=== PATIENT | male | born 1940 | race Caucasian/White ===

== ENCOUNTER → 2018-01-25 14:55 | Outpatient (CLI) | payer MEDICARE, SELFPAY ==
--- NOTE | 2018-01-25 14:58 | DI.RAD.S_ITS ---
PROCEDURE: XR HIP W PEL IF DONE LT 2V INDICATIONS: Pain in left hip TECHNIQUE: AP pelvis with lateral view(s) of the left hip(s). COMPARISON: None. FINDINGS: Bones: There is severe left hip joint osteoarthritis with complete loss of joint space, extensive subchondral sclerosis and cyst formation. No radiographic evidence of avascular necrosis. Moderate right hip joint osteoarthritis is also seen. No fractures or dislocations. Pelvic ring appears intact. No suspicious bony lesions. Soft tissues: The visualized bowel gas pattern is normal. No suspicious soft tissue calcifications. IMPRESSION: Severe left hip joint osteoarthritis. No fracture or dislocation. No evidence of avascular necrosis.. Dictated by: Billy Bowers M.D. on 01/25/2018 at 16:06 Approved by: Billy Bowers M.D. on 01/25/2018 at 16:07
== END ==
PROVIDERS: PCP Family Medicine; Visit Provider Family Medicine
DX: M25.552 Pain in left hip (principal); M16.12 Unilateral primary osteoarthritis, left hip
CPT/HCPCS: 73502

== ENCOUNTER → 2018-02-02 16:49 | Outpatient (CLI) | payer MEDICARE, SELFPAY ==
--- NOTE | 2018-02-02 16:51 | DI.MRI.S_ITS ---
PROCEDURE: MR ANKLE RT WO CON INDICATIONS: CHRONIC RIGHT ANKLE PAIN TECHNIQUE: Noncontrast sagittal T1 spin echo and T2 fast spin echo with fat saturation, axial proton density fast spin echo and T2 fast spin echo with fat saturation, coronal T1 spin echo and T2 fast spin echo with fat saturation through the ankle/hindfoot. COMPARISON: None. FINDINGS: Image quality: Excellent. Bones and joints: No bone marrow contusions or fractures. No hindfoot coalitions. No osteochondral injuries of the talar dome. There is a minimal tibiotalar joint effusion. There is generalized mild subcutaneous edema. Medial structures: The posterior tibialis, flexor digitorum longus, and flexor hallucis longus tendons are intact. The posterior tibial neurovascular bundle appears normal within the tarsal tunnel, without extrinsic mass effect. The deltoid and spring ligaments appear intact. Lateral structures: The anterior talofibular, calcaneofibular, and posterior talofibular ligaments appear intact. There is thickening of the anterior talofibular ligament suggestive of a prior sprain. More superiorly, the anterior and posterior tibiofibular ligaments appear intact, as is the intermalleolar ligament. The tibiofibular syndesmosis is normal in width at 2 mm or less. The peroneus longus and brevis tendons demonstrate mild longitudinal split tears inferior to the lateral malleolus. Adjacent bony peroneal tubercle and retrotrochlear prominence are normal in size. The sinus tarsi demonstrates preserved fatty signal. The calcaneonavicular and calcaneocuboid components of the bifurcate ligament appear intact. The dorsal calcaneocuboid ligament appears intact. Anterior structures: The tibialis anterior, extensor hallucis longus, and extensor digitorum longus tendons appear intact. The dorsal talonavicular ligament appears intact. Posterior and plantar structures: Achilles tendon is intact. Medial and lateral bands of the plantar fascia are of normal thickness. No abductor digiti quinti muscle atrophy to suggest Bean neuropathy. IMPRESSION: 1. Small longitudinal split tears of the peroneal tendons. 2. Sequelae of prior sprain of the anterior talofibular ligament. Dictated by: Dhruv Banegas M.D. on 02/02/2018 at 16:53 Approved by: Dhruv Banegas M.D. on 02/02/2018 at 17:02
== END ==
PROVIDERS: PCP Family Medicine; Visit Provider Podiatrist
DX: S86.311A Strain of muscle(s) and tendon(s) of peroneal muscle group at lower leg level, right leg, initial encounter (principal); M25.371 Other instability, right ankle; S93.491S Sprain of other ligament of right ankle, sequela
CPT/HCPCS: 73721

== ENCOUNTER → 2018-04-18 14:31 | Outpatient (CLI) | payer MEDICARE, SELFPAY ==
[2018-04-18 14:47] LABS: Bacteria Urine None Seen; WBC Urine None Seen (0-5/HPF)
[2018-04-18 15:26] LABS: Appearance Urine UA CLEAR; Bilirubin Urine UA NEGATIVE (NEGATIVE); Color Urine UA YELLOW; Glucose Urine UA NEGATIVE (Normal); Ketones Urine UA NEGATIVE (NEGATIVE); Leukocyte Esterase Urine UA NEGATIVE (NEGATIVE); Nitrite Urine UA NEGATIVE (Negative); Occult Blood Urine UA 1+ (Negative); Protein Urine UA NEGATIVE (Negative); Specific Gravity Urine UA 1.015 (1.000-1.035); Urobilinogen Urine UA 0.2 E.U./dL (0.2); pH Urine UA 5.5 (4.5-8.0)
[2018-04-18 15:31] LABS: Add Manual Diff / Slide Review NO; Basophils Percent Auto 0.9 % (0-2); Eosinophils Percent Auto 4.3 % (2-4); Hematocrit 42.3 % (41-53); Hemoglobin 14.2 g/dL (13.5-17.5); Lymphocytes Percent Auto 20.6 % (25-40); Mean Corpuscular HGB Conc 33.7 % (30-36); Mean Corpuscular Hemoglobin 30.5 PG (26-34); Mean Corpuscular Volume 90.5 fL (80-100); Monocytes Percent Auto 9.9 % (3-14); Neutrophils Absolute Auto 4700 /uL (3000-5900); Neutrophils Percent Auto 64.3 % (50-75); Platelet Count 278 X10^3/uL (150-400); Red Blood Cell Count 4.67 X10^6/uL (4.5-5.9); White Blood Cell Count 7.3 X10^3/uL (4.5-11.0)
[2018-04-18 15:42] LABS: Culture Indicated Urine Cult Not Indicated; RBC Urine 0-1/HPF (0-5/HPF)
[2018-04-18 15:46] LABS: Hemoglobin A1C% w Est Avg Glu 5.8 % (4.0-6.0)
[2018-04-18 16:55] LABS: Blood Urea Nitrogen 24 mg/dL (9-20); Calcium 9.4 mg/dL (8.4-10.2); Carbon Dioxide 29 mmol/L (22-32); Chloride 102 mmol/L (98-107); Estimated Glomerular Filt Rate > 60.0 mL/min (>60); Glucose 128 mg/dL (80-110); HEMOLYSIS < 15 (0-50); Potassium 3.9 mmol/L (3.4-5.1); Sodium 143 mmol/L (137-145)
== END ==
PROVIDERS: PCP Family Medicine; Visit Provider Orthopaedic Surgery
DX: N39.0 Urinary tract infection, site not specified (principal); R73.9 Hyperglycemia, unspecified; Z01.818 Encounter for other preprocedural examination
CPT/HCPCS: 36415; 80048; 81001; 83036; 85025; 87086; 93005; 93010

== ENCOUNTER → 2018-05-31 13:33 | Outpatient (CLI) | payer MEDICARE, SELFPAY ==
--- NOTE | 2018-05-31 13:36 | DI.ECHO.S_ITS ---
[facility] +---------+ [facility] +---------+ : : [address] : [place] [address] : : : : [id number] : : : : Phone: [phone]+ Echocardiogram Report + + :Name: STONE BERRY Study Date: 05/31/2018 Height: 72 in : :[facility] Weight: 175 lb : : Gender: Male BSA: 2.0 m2 : :: 1940 Age: 78 yrs BP: 165/80 mmHg: :Reason For Study: Pre-surgical evaluation : : Performed By: Aranza Plaza : :Referring: EFREN MACHADO : + + Interpretation Summary 1) Normal left ventricular thickness, size, and systoilc function (EF 55-60%). 2) There is a mild dyssynchronous contraction pattern, consistent with a conduction abnormality. 3) Grossly normal right ventricular size and function. 4) No significant valvular abnormalities. 5) Hypertension present during the study (BP 165/80mmHg). 6) Compared to the Echo done 05/01/2015, no significant change when compared visually. Procedure: A two-dimensional transthoracic echocardiogram with color flow and Doppler was performed. The study quality was technically adequate. Comparison is made with the echocardiogram of 05-01-15. The patient was in irregular during the exam. Left Ventricle: The left ventricle is normal in size. There is normal left ventricular wall thickness. The ejection fraction is estimated to be 55-60%. Left ventricular systolic function is normal. There is a mild dyssynchronous contraction pattern, consistent with a conduction abnormality. Diastolic parameters suggest probable normal left ventricular diastolic function and normal filling pressures. Right Ventricle: The right ventricle grossly appears normal in size with probable normal systolic function. Atria: The left atrial size is normal. The right atrium is mildly dilated. The interatrial septum is intact with no evidence for an atrial septal defect. Mitral Valve: The mitral valve is normal in structure and function. There is trace mitral regurgitation. Aortic Valve: The aortic valve is trileaflet. The aortic valve opens well. There is trace aortic regurgitation. Tricuspid Valve: The tricuspid valve is normal in structure and function. There is trace tricuspid regurgitation. The right ventricular systolic pressure is estimated to be at least 30 mmHg based on an estimated right atrial pressure of 3 mm Hg. Pulmonic Valve: The pulmonic valve is normal in structure and function. There is trace pulmonic regurgitation. Great Vessels: The aortic root is mildly dilated. The ascending aorta is at the upper limits of normal in size. The aortic arch is at the upper limits of normal in size. The IVC is of normal diameter and collapses greater than 50% with a sniff. This suggests a low right atrial pressure of 3 mm Hg. Pericardium/ Pleura There is no pericardial effusion. There is no pleural effusion. MMode/2D Measurements & Calculations LVIDd: 4.5 cm Ao root diam: 4.1 cm LVIDs: 2.9 cm Aortic Jxn: 3.3 cm FS: 34.4 % asc Aorta Diam: 3.6 cm IVSd: 1.1 cm Ao Arch Diam (Prox Trans): 3.4 cm LVPWd: 0.86 cm LV sahni. diameter/BSA (cm/m^2): 2.2 LV sys. diameter/BSA (cm/m^2): 1.5 LA dimension: 3.6 cm RA long axis: 5.0 cm LA A2 area: 21.4 cm2 RA area: 21.1 cm2 LA A4 area: 15.8 cm2 RA vol: 75.9 ml LA length (vol): 5.9 cm RA : 37.7 ml/m2 LA vol: 48.9 ml IVC diam: 1.2 cm LA vol index: 24.3 ml/m2 RVDd major: 6.1 cm RVD1 (basal): 3.7 cm RVD2 (mid): 3.3 cm Doppler Measurements & Calculations Ao V2 max: 122.2 cm/sec MV E max aristides: 41.5 cm/sec Ao V2 mean: 84.1 cm/sec MV A max aristides: 60.0 cm/sec Ao max P.0 mmHg MV E/A: 0.69 Ao mean P.2 mmHg Med Peak E' Aristides: 7.7 cm/sec Ao V2 VTI: 28.5 cm E/E' med: 5.4 Lat Peak E' Aristides: 10.3 cm/sec E/E' lat: 4.0 E/e' average: 4.7 MV dec time: 0.14 sec MV P1/2t: 43.7 msec TR max aristides: 257.4 cm/sec MV P1/2t max aristides: 42.1 cm/sec TR max P.5 mmHg MVA(P1/2t): 5.0 cm2 PA V2 max: 93.5 cm/sec PA V2 mean: 56.9 cm/sec PA mean P.6 mmHg PA Accel Time: 0.12 sec Reading Physician:01:15 PM
== END ==
PROVIDERS: PCP Family Medicine; Visit Provider Family Medicine
DX: Z01.810 Encounter for preprocedural cardiovascular examination (principal); I45.10 Unspecified right bundle-branch block; I10 Essential (primary) hypertension
CPT/HCPCS: 93306

== ENCOUNTER 2018-06-05 05:50 | Inpatient (IN) | payer MEDICARE, SELFPAY ==
[2018-05-22 09:42] VITALS: BMI 23.7
[2018-06-05] VITALS (20 sets, daily range): BP systolic 108–160; BP diastolic 63–97; PULSE 68–96; RESP 9–76; TEMP 36.2–37.5; O2SAT 93–99; BMI 23.7
--- NOTE | 2018-06-05 | DI.RAD.S_ITS ---
PROCEDURE: XR PELVIS 1-2V INDICATIONS: LEFT ANTERIOR HIP TECHNIQUE: Intra-operative view of the pelvis and hip acquired. COMPARISON: [facility], [place], XR PELVIS WITH LATERAL HIP LEFT, 04/10/2018, 10:52. FINDINGS: 2 intraoperative fluoroscopic views demonstrate a new left total hip prosthesis. This appears congruent in alignment on the images obtained. IMPRESSION: 1. Intraoperative images of the left hip obtained for surgical guidance demonstrates a new left hip prosthesis. Dictated by: Dhruv Banegas M.D. on 06/05/2018 at 11:23 Approved by: Dhruv Banegas M.D. on 06/05/2018 at 11:24
--- NOTE | 2018-06-05 06:00 | DI.RAD.S_ITS ---
PROCEDURE: XR HIP W PEL IF DONE LT 2V INDICATIONS: prosthesis placement TECHNIQUE: AP pelvis and lateral view of the left hip acquired. COMPARISON: [facility], NA, XR HIP W PEL IF DONE LT 2V, 01/25/2018, 15:01. FINDINGS: Bones: Patient is status post left hip arthroplasty, with hardware components in expected positions. The hip joint appears congruent. The visualized bony structures appear intact. Soft tissues: Overlying postoperative changes are noted. No suspicious soft tissue densities. IMPRESSION: Normal alignment after left total hip arthroplasty. Dictated by: Ammon Salmon M.D. on 06/05/2018 at 13:37 Approved by: Ammon Salmon M.D. on 06/05/2018 at 13:38
[2018-06-05] MEDS: LACTATED RINGERS 1,000 ML 42 ML IV ×2 (06:50→10:54)
[2018-06-05] MEDS: VANCOMYCIN 1,000 MG/200 ML FROZ.PIGGY 200 MG IV (06:55)
[2018-06-05] MEDS: ACETAMINOPHEN 325 MG TABLET 975 MG PO ×3 (07:15→20:44)
[2018-06-05] MEDS: CELECOXIB 200 MG CAPSULE PO (07:15)
[2018-06-05] MEDS: PREGABALIN 75 MG CAPSULE PO (07:16)
--- NOTE | 2018-06-05 07:42 | PM.PREOP ---
Pre-operative Note Interval Note History & Physical reviewed/Exam performed by Physician: No Changes to H&P: No
--- NOTE | 2018-06-05 07:46 | PM.OP.1 ---
Operative Date/Time/Diagnoses Date of procedure: 06/05/18 Time of procedure: 07:46 Pre-op diagnosis: left hip OA Post-op diagnosis: same Procedure & Clinicians Procedure: left total hip arthroplasty Same procedure as scheduled: Yes Indications: The patient has had progressively worsening left hip pain with radiographic changes consistent with arthritis. Non-operative management has failed and the patient has requested total hip replacement. The risks, benefits and alternatives to surgery were discussed with the patient prior to proceeding. Risks discussed included, but were not limited to, failure to relieve pain, leg length discrepancy, dislocation, stiffness, infection, nerve damage, deep venous thrombosis, pulmonary embolism, stroke, coma, heart attack, permanent paralysis and , as well as the potential need for eventual revision of the prosthetic. Surgeon: Idalmis Couch Floor Tiling Professional: Vickie Sung Anesthesia Type: General Operative Notes Findings: Severe left hip arthritis, good stability Closure Type: primary Specimen(s): none sent Implants & Drains: couch and nephew anthology size 7 standard offset, 56 R3 cup, 56 x 36 +4 Estimated Blood Loss (mL): 250 Blood products transfused: none Procedure in detail: The patient was brought to the operating room. Patient was carefully positioned in the supine position. Time-out was performed and antibiotics were given. Anesthesia was induced. She was positioned in the on the table in order to allow hyperextension of the hip. Bilateral lower extremities were prepped and draped in a standard sterile fashion. An anterior left hip incision was made 1 fingerbreadth lateral to the anterior superior iliac spine and extended distally towards the greater trochanter. Dissection was carried out through skin and subcutaneous tissues. The skin and subcutaneous tissues were carefully injected with Lidocaine with epi. Superficial hemostasis was achieved. The fascia over the tensor fascia terell was defined and incised with a knife. Two Allis clamps were used to grasp the fascia. Tensor fascia terell was retracted laterally. A gelpi retractor was placed. Dissection was carried out down along the neck. The circumflex vessels were carefully identified and cauterized with the Aqua Mantis. There was good visualization of the femoral neck. A Cobra was placed superior to the neck and the gluteus fibers were carefully stripped from that superior aspect of the capsule. A 2nd retractor was placed along the inferior aspect of the neck. The rectus insertion along the capsule was partially released. A 3rd retractor that was then gently placed over the rim of the acetabulum under the rectus. Capsule was carefully incised and released from the intertrochanteric line circumferentially superior to the mid sagittal line and inferiorly to the mid sagittal line until the lesser trochanter was palpable. A tag stitch was placed both in the superior and inferior limb of the capsular insertion. Along the acetabulum capsule was also released up to the mid sagittal 12:00 position. A portion of the labrum was resected. A saw was used to perform an osteotomy at the level of the intertrochanteric line and the junction of the superior femoral neck leaving approximately 1 finger breath of residual inferior neck above the lesser trochanter. A 2nd cut was made along the femoral neck at the base of the head and a napkin ring of neck was removed. Corkscrew was placed in the femoral head and the head was removed without difficulty. Retractors were then repositioned around the acetabulum. Residual labrum was resected and additional osteophytes were removed. A reamer that was 4 mm below the templated size was placed by hand in the acetabulum and it was reamed to centralize the acetabulum. It was then reamed up to 2 under the templated size and fluoroscopy was brought in to confirm the position of the reaming and depth of reaming. I reamed 1 under the anticipated size and touched the rim with line to line reaming. A trial cup was placed and noted that it was appropriately sized and fluoroscopy confirmed position and depth. The component was open and inserted without difficulty fluoroscopic imaging was used to confirm that the cup had been adequately seated and was well positioned. Neutral poly trial liner was placed. The cup was tested and noted to be stable. Attention was then directed to the femur. The femur was gently hyperextended additional capsular release was performed as needed in order to allow adequate visualization of the proximal femur with elevation of the femur. Patient was placed in a hyperextended slightly abducted position with maximum external rotation. Box osteotome was used to check for any residual neck as well as sclerotic bone along the trochanter. Wanchese pepper was placed in the femur. Additional broaching was performed. Canal finder was used to determine the alignment of the canal and position. Size 1 broach was placed. The canal was then appropriately broached up to the templated size as long as there was adequate stability of the broach and serial advancement of the broach without excessive impingement. Specific attention was directed at avoiding varus attempting to direct the distal aspect of the broach more anteriorly and avoiding excessive anteversion. Trial reduction showed acceptable range of motion, good stability, no posterior impingement, adventist of leg length and appropriate lateral shuck. I also hyperflexed the hip and checked that there was no impingement anteriorly and there was good stability with flexion, abduction and internal rotation. Final neutral poly was placed without difficulty. Marcaine and Exparel were injected.. The stem was placed without difficulty. Repeat trial reduction and x-ray showed acceptable overall position, length, and no evidence of the femoral fracture. Final head was placed. Wound was meticulously irrigated with normal saline. The hip was reduced and additional Exparel and Marcaine were injected. The capsule was closed with interrupted nonabsorbable sutures. The fascia of the tensor was closed with interrupted and running Vicryl. No drain was placed. Any tensor fascia terell muscle that appeared to be contused or injured which was a minimal amount was carefully resected. Capsule around the tensor was injected with Exparel and Marcaine. The skin was closed with barbed stitches for the subcutaneous tissue and skin. We also used surgical glue. The wound was dressed sterilely. Brief Betadine soak was also used and was meticulously irrigated with normal saline. Patient was transferred to recovery room in satisfactory condition. Complications: none Condition: stable Disposition: Acute Care Plan for aftercare: The patient will be maintained on a standard total hip replacement protocol with weight bearing as tolerated and anterior hip precautions. The patient will receive Aspirin and sequential compression devices for DVT prophylaxis. The patient will be discharged home when safe for the home environment.
[2018-06-05] MEDS: CEFAZOLIN 2 GM/100 ML FROZ.PIGGY IV ×2 (08:07→16:54)
--- NOTE | 2018-06-05 08:30 | SUR.OPER ---
Supine, head on pillow, torso on pink pad positioner. Iliac crest at flex of foot end of table. Gel roll under operative hip. Both arms secured on arm boards <90 degrees abduction.
[2018-06-05] MEDS: LIDOCAINE 1% W/EPI INJ 20 ML INJ (08:40)
[2018-06-05] MEDS: BUPIVACAINE 0.25% W/ EPI VIAL 50 ML INJ (08:42)
[2018-06-05] MEDS: BUPIVACAINE LIPOSOME 266 MG/20 ML VIAL INJ (08:42)
[2018-06-05] MEDS: POVIDONE-IODINE 15 ML, SODIUM CHLORIDE 0.9% 250 ML TOP (08:47)
[2018-06-05] MEDS: LORazepam 2 MG/ML SYRINGE 0.25 MG IV ×2 (11:35→11:55)
[2018-06-05] MEDS: HYDROMORPHONE 2 MG INJ 0.5 MG IV ×3 (11:40→11:50)
--- NOTE | 2018-06-05 13:39 | SUR.PHASEI ---
pt transfer with wilda garcia pt alert and oriented convwersing weith and URBANO betts on arrival . first spo2 was 95 % on room air
[2018-06-05] MEDS: LACTATED RINGERS 1,000 ML 125 ML IV ×2 (14:21→23:20)
--- NOTE | 2018-06-05 15:33 | RT ---
Pt wore hospital CPAP in PACU, then ETCO2 monitor. Nursing brought pt to room 223. Trial of ETCO2 X 10 minutes; pt awake, drinking broth and eating jello, ETCO2 removed, Nurse Paulino aware.
--- NOTE | 2018-06-05 17:37 | PT.IIE ---
Current Diagnoses Unilateral primary osteoarthritis, left hip (06/05/18) Surgery Performed Operation Date: 06/05/18 07:45 Actual Procedures p Total Hip Arthroplasty/Anterior Approach(Left) - Idalmis Cesar MD Surgical History (Last Updated 05/22/18 @ 10:21 by Marycarmen Landers RN) H/O bilateral cataract extraction (Acute) History of colonoscopy (Acute) S/P left rotator cuff repair (Acute) Status post eye surgery (Resolved 01/2000) Status post eye surgery (Resolved 06/2000) Status post hernia repair (Resolved 12/2005) Status post laminectomy (Resolved 07/2004) Status post rotator cuff repair (Resolved 02/1999) Status post rotator cuff repair (Resolved 01/2011) Status post transurethral resection of prostate (Resolved 12/2006) Medical History (Last Updated 05/22/18 @ 10:38 by Marycarmen Landers RN) Abnormal EKG (Acute) Primary localized osteoarthrosis (Acute) Toenail fungus (Acute) BPH (benign prostatic hyperplasia) (Chronic ~2003) Cataract (Chronic 2013) Chronic back pain (Chronic) Foot pain (Chronic) Gout (Chronic) Hearing loss (Chronic ~1999) Hemorrhoids (Chronic ~2003) IBS (irritable bowel syndrome) (Chronic) Osteoarthritis (Chronic) Scoliosis (Chronic) Shoulder pain (Chronic) Tinnitus (Chronic ~1979) Actinic keratosis (Resolved) Chicken pox (Resolved) Hydrocele (Resolved ~2009) Measles (Resolved) Mumps (Resolved) Precancerous skin lesion (Resolved) Retinal tear (Resolved ~1999) Physical Therapy Inpatient Evaluation/Re-Eval M1 PT/OT-IP Prior Functional Status Start: 06/05/18 17:12 Freq: NEEDED Status: Active Protocol: Document 06/05/18 16:15 (Rec: 06/05/18 17:37 [id number]) Medical Review Prior Functional Status Medical History Reviewed Yes Communication No deficits noted Mobility and Gait Pt is an independent [facility] Activities of Daily Living and IADL's Pt is independent for all ADLs and IADLs without using AD. Pt also drives Social History Household Members spouse Living Arrangements House Number of Floors (Floors) One Floor Number of Stairs To Enter/Railing? No MAGNOLIA Home Environment Walk in Shower Home Equipment Front Wheel Walker Straight Cane Raised Toilet Seat w/Armrests Shower Seat with Backrest Grab Bars Near Toilet Grab Bars In Shower Employment Status Retired Additional Social History Comment Pt lives with his in a 1 story home without MAGNOLIA in [place]. Pt and his are both independent for all ADLs and IADLs. Pt's states they both 2-3 miles a day without using any AD. Pt borrowed a FWW and SPC for post op mobility. Pt received pre-op PT prior to sx in [place] and hopefully will return there for post op rehab . M2 PT-IP Current Condition Start: 06/05/18 17:12 Freq: NEEDED Status: Active Protocol: Document 06/05/18 16:15 (Rec: 06/05/18 17:37 [id number]) Physical Therapy Current Condition Current Condition Evaluation Date 06/05/18 Treatment Diagnosis L ALICIA, difficulty in walking, generalized muscle weakness Onset Date 06/05/18 Precautions Anterior Hip Precautions No Hip Extension No Hip External Rotation Weight Bearing Status Weight Bearing Status Weight Bear as Tolerated M3 PT-IP Subjective Start: 06/05/18 17:12 Freq: NEEDED Status: Active Protocol: Document 06/05/18 16:15 HH (Rec: 06/05/18 17:37 [id number]) Subjective Physical Therapy Visit Type Type Initial Evaluation Visit Start Time 16:15 Visit Stop Time 17:00 Total Visit Minutes 45 Notes Pt agreeable to mobilize with PT. Number of ICE MAKER Visits 0 Physical Therapy Visit Comments Patient Comments I want to get OOB and i want to pee. Patient Goals To return home with his in [place] return to his previous PT clinic for post op rehab. Therapy Pain Assessment Pain When Pain Assessed At Rest Pain Present Pain Present Pain Reported Location Left Hip Intensity 7 Scale Used Numeric (1 - 10) Description Acute Pain Management Techniques Apply Cold Modification of Treatment Re-positioning Timing of Activity with Medications M4 PT-IP Mobility and Gait Start: 06/05/18 17:12 Freq: NEEDED Status: Active Protocol: Document 06/05/18 16:15 HH (Rec: 06/05/18 17:37 [id number]) PT-Bed Mobility Assessment Supine to Sit Supine to Sit Contact Guard Assistance Head of Bed Elevated Bedrails Scooting Scooting to Edge of Bed Contact Guard Assistance PT-Transfer Assessment Sit to and From Stand Sit to and from Stand Contact Guard Assistance Minimal Assistance 1 Person Assistance Use of Upper Extremities Equipment Transfer Assistive Device Bed Rail Gait Belt Front Wheeled Walker Transfers Transfer Destination Bed Chair Toilet Transfer Technique Stand Step Pivot Transfer Ability Level of Assist Contact Guard Assistance Comments Mobility Comments Pt's BP at 130-140s/ 80-90s HR 90s before and after mobility Reviewed post op ant hip precautions with pt and his . Pt prefers getting OOB on the left side. Pt performed overall bed mobility and transfer activities with CGA x 1pa with FWW. However, pt does require min A for sit to stand from a lowered bedside chair today. Pt understands to use a stagger stance for sit< > stand to avoid excessive stress to surgical site. Pt did vomit after the first trial to bedside chair but then he requested to go to bathroom for toileting. Pt was able to maintain static stance with L UE support on FWW for 4 mins. Pt did not show signs of LOB and acute distress. He was then transferred back to chair. call light within reach. RN notified regarding his nausea feeling after mobility. Gait Assessment Gait Gait Assistance Required: Contact Guard Assist Distance (Feet) 20 Able to Maintain Weight Bearing Status Yes During Gait Assistive Devices Assistive Device Gait Belt Front Wheeled Walker Gait Deviations General Gait Pattern Antalgic Decreased Stride Length Decreased Feet Clearance Step-to Gait Factors Limiting Gait Function Factors Limiting Gait Function Decreased Activity Tolerance Decreased Strength Limited Range of Motion Pain Poor Balance Poor Safety Awareness Comments Gait Comments Pt amb from L EOB to bedside chair on the right with CGA x 1 followed by amb to bathroom and return to chair. Pt demonstrates step to gait pattern with FWW along with decreased stride length and feet clearance. Need cues to facilitate WBAT and step over gait. Pt education on 2 and 3point gait pattern with the SPC for later phase of rehab as well. Stair Climbing Assessment Comments Stair Climbing Comments did not attempt PT-Balance Assessment Sitting Balance and Reactions Static Sitting Balance Ability Normal Dynamic Sitting Balance Ability Normal Standing Balance and Reactions Static Standing Balance Ability Good Dynamic Standing Balance Ability Good Device Used FWW M5 PT-IP Objective Assessments Start: 06/05/18 17:12 Freq: NEEDED Status: Active Protocol: Document 06/05/18 16:15 HH (Rec: 06/05/18 17:37 HH [id number]) Orientation Orientation/Cognition Level of Alertness Alert Orientation Name Age Birthday Month Date Year Day of Week Place Situation Language Function Ability No Deficits Noted Safety Awareness Understands Safety Issues Memory Description No Deficits Noted Gross Range of Motion Upper Extremity ROM Assessment Within Functional Limits Lower Extremity ROM Assessment Left Impaired Strength Upper Extremity Strength Assessment Within Functional Limits Lower Extremity Strength Assessment Left Impaired Comments Strength Comments 3+/5 for LLE grossly Coordination Assessment Gross Coordination Gross Coordination WNL Sensation Assessment Sensation Gross Sensation WNL M6 PT-IP Treatment Start: 06/05/18 17:12 Freq: NEEDED Status: Active Protocol: Document 06/05/18 16:15 (Rec: 06/05/18 17:37 [id number]) Physical Therapy Treatment Exercises Exercises Ankle Pumps Gluteal Sets Quad Sets Education Education Provided Precautions Weight Bearing Status Post-Op Packet Safety M7 PT-IP Assessment and Plan Start: 06/05/18 17:12 Freq: NEEDED Status: Active Protocol: Document 06/05/18 16:15 HH (Rec: 06/05/18 17:37 [id number]) PT Summary Assessment and Plan Potential Rehabilitation Potential Excellent Status of Condition at Evaluation Evolving Summary Impairments Pain ROM Strength Bed Mobility Transfers Gait Activity Tolerance Assessment Summary Pt is a pleasant 78 yo male post op L ALICIA day 1. Pt's at bedside. Pt is Ax O x 4 with c/o pain 7/10 and fatigue after surgery. Pt also slightly anxious about his limitations. Pt education is given today regarding post op precautions and use of FWW and SPC. Pt requires max cues for his current step to pattern but he was able to amb from EOB to bathroom and return to bedside chair with CGA; but min A for sit to stand from low chair. Pt did vomit and felt nausea for the first attempt of amb but he states I feel better after the 1st trial. In my professional opinion, d/c home and cont outpatient PT for post op rehab with his previous OP clinic once pt is medically stable due to his high PLOF and active lifestyle. Goals Bed Mobility Goal Independent Transfer Goal Independent Gait Goal Independent Gait Distance 150 Other Goals Able to recall ant hip precautions Days to Meet Goals 3 Frequency of Treatment Frequency Of Treatment Twice a Day Treatment Plan Physical Therapy Treatment Plan Bed Mobility Training Transfer Training Gait Training Therapeutic Exercise Balance Retraining Post Op Education Discharge Planning Hot or Cold Pack Other Recommendations and Next Treatment reassess his understanding of Focus ant hip precautions gait training as [place], step through training transfer training as [place] Recommendations To Nursing Amount of Assist Needed Standby Assistance 1 Person Assist Discharge Recommendations PT Discharge Recommendations Home Outpatient PT
--- NOTE | 2018-06-05 17:41 | PC.NURSE ---
Addendum entered by Jessica Harley R.N. 06/05/18 20:58: Pt has had uneventful evening. Assisted to BR w/o incidence. Dsg rermains CDI Continuous pulse ox, 97% RA Stable post op course. Call light w/in reach, bed alarm on for pt safety. Continue w/plan of care. Original Note: Pt sitting in chair,by PT Lungs diminished at bases. SpO2 98%2L O2 IS to 1500 IV LR @ 125cc/hr infusing via pump into left hand w/o incidence. Dsg to hip CDI. Call light w/in reach, bed alarm on for pt safety. Stable post op course.
[2018-06-05] MEDS: DOCUSATE 100 MG CAPSULE PO (20:44)
[2018-06-05] MEDS: ASPIRIN EC 81 MG TABLET PO (20:46)
[2018-06-06 00:18] VITALS: BP 132/71; PULSE 78; RESP 16; TEMP 36.7
[2018-06-06] MEDS: CEFAZOLIN 2 GM/100 ML FROZ.PIGGY IV (00:54)
[2018-06-06] MEDS: IBUPROFEN 600 MG TABLET PO (04:05)
[2018-06-06 05:30] VITALS: BP 127/73; PULSE 74; RESP 18; TEMP 37.1; O2SAT 95
[2018-06-06 06:11] LABS: Hematocrit 32.4 % (41-53); Hemoglobin 10.9 g/dL (13.5-17.5)
[2018-06-06] MEDS: OXYCODONE IR 5 MG TABLET PO ×3 (07:35→12:20)
[2018-06-06 07:56] VITALS: BP 127/80; PULSE 67; RESP 16; TEMP 36.6; O2SAT 99
--- NOTE | 2018-06-06 08:20 | PM.DS.1 ---
History of Present Illness Date Patient Seen: 06/06/18 Time Patient Seen: 08:22 Chief complaint: [id number] Narrative: The patient has had progressively worsening left hip pain with radiographic changes consistent with arthritis. Non-operative management has failed and the patient has requested total hip replacement. The risks, benefits and alternatives to surgery were discussed with the patient prior to proceeding. Risks discussed included, but were not limited to, failure to relieve pain, leg length discrepancy, dislocation, stiffness, infection, nerve damage, deep venous thrombosis, pulmonary embolism, stroke, coma, heart attack, permanent paralysis and , as well as the potential need for eventual revision of the prosthetic. Discharge Providers Date of admission: 06/05/18 05:50 Primary care physician: Bean Valdovinos MD Consults: 06/05/18 06:00 Consult to Anesthesiology Routine Comment: Consulting Provider: Anesthesiologist Reason for consultation: Regional block for post operative pain control Has provider been notified: Yes 06/05/18 13:48 Consult to Discharge Planning Routine Comment: Consult to Physical Therapy Evaluate & Treat Comment: Physician Instructions: post op ALICIA protocol Consult to Respiratory Therapy Evaluate & Treat Comment: Physician Instructions: Evaluate and treat Discharge provider: Chanel Fulton PA-C Discharge Date: 06/06/18 Summary Discharge Diagnosis: s/p total hip arthroplasty Hospital Course: Holly was admitted for a left total hip arthroplasty with Dr. Cesar and he consented to procedure. Hospital course was unremarkable. POD #1 he was ready to DC home. He was eating and voiding without difficulty or assistance. He has been up and ambulating with PT. He has outpatient PT scheduled. He has his home medications. Status at Discharge Functional status at discharge: uses cane/walker Exam Vital Signs (past 8 hours): - 06/06/18 05:30 06/06/18 07:56 Temperature 98.7 F 97.9 F Pulse Rate 74 67 Respiratory Rate 18 16 Blood Pressure 127/73 127/80 Pulse Oximetry 95 99 Oxygen Delivery Method Nasal Cannula Oxygen Flow Rate 0 Narrative Exam Narrative: Patient lying in bed in NAD. He is alert and oriented X3. Dressing on left hip is CDI. Calves are soft, compressible, and nontender bilaterally. Pulses are symmetrical. His pain was well controlled last night. Objective Labs Result Diagrams: 06/06/18 05:54 Labs: Laboratory Results - last 24 hr 06/06/18 05:54 Hgb 10.9 L Hct 32.4 L Discharge Plan Discharge Plan Patient Disposition: Home Discharge comment: DC home today after PT Discharge Med Rec/Prescriptions Prescriptions: New docusate sodium 100 mg Capsule 100 mg PO BID Qty: 60 RF: 0 oxycodone 5 mg Tablet 5 mg PO Q4HR PRN (Reason: Pain, Moderate (4-6)) Qty: 60 RF: 0 Continue magnesium oxide 400 MG tablet 400 mg PO Q DAY Qty: 0 RF: 0 tamsulosin [Flomax] 0.4 MG capsule,extended release 24hr 0.4 mg PO QDAY Qty: 90 RF: 3 meloxicam 15 mg Tablet 15 mg PO DAILY PRN (Reason: Pain) RF: 0 clobetasol 0.05 % Cream 1 applic TOPICAL PRN PRN (Reason: Grober's Disease) RF: 0 acetaminophen 500 mg Tablet 1,000 mg PO Q6H PRN (Reason: Pain) RF: 0 Changed aspirin 81 mg Tablet,Delayed Release (Dr/Ec) 81 mg PO BID Qty: 0 RF: 0 Discontinued ibuprofen [Advil] 200 mg Tablet 400 mg PO BID PRN (Reason: Pain) RF: 0 Follow up/Referrals: Idalmis Cesar MD [Physician] - Provider Discharge Instructions Activity: WBAT, anterior hip precautions Skin/Wound/Dressing Care Report to your healthcare provider any signs of infection, such as:: chills, fever and increased pain Dressing: Leave in place for 10-14 days Visit Report/Discharge Packet Instructions: DI for Hip Replacement Discharge Data Primary Care Provider: Bean Valdovinos Attending Provider: Idalmis Cesar Admit Date/Time: 06/05/18 05:50
[2018-06-06] MEDS: ACETAMINOPHEN 325 MG TABLET 975 MG PO (08:32)
[2018-06-06] MEDS: ASPIRIN EC 81 MG TABLET PO (08:33)
[2018-06-06] MEDS: DOCUSATE 100 MG CAPSULE PO (08:33)
[2018-06-06] MEDS: TAMSULOSIN 0.4 MG CAPSULE PO (08:34)
--- NOTE | 2018-06-06 09:23 | PT.IPTN ---
Current Diagnoses Unilateral primary osteoarthritis, left hip (06/05/18) Surgery Performed Operation Date: 06/05/18 07:45 Actual Procedures p Total Hip Arthroplasty/Anterior Approach(Left) - Idalmis Cesar MD Physical Therapy Treatment Note M2 PT-IP Current Condition Start: 06/05/18 17:12 Freq: NEEDED Status: Active Protocol: Document 06/05/18 16:15 HH (Rec: 06/05/18 17:37 HH [id number]) Physical Therapy Current Condition Current Condition Evaluation Date 06/05/18 Treatment Diagnosis L ALICIA, difficulty in walking, generalized muscle weakness Onset Date 06/05/18 Precautions Anterior Hip Precautions No Hip Extension No Hip External Rotation Weight Bearing Status Weight Bearing Status Weight Bear as Tolerated M3 PT-IP Subjective Start: 06/05/18 17:12 Freq: NEEDED Status: Active Protocol: Document 06/06/18 09:23 AB (Rec: 06/06/18 11:27 AB [id number]) Subjective Physical Therapy Visit Type Type Treatment Note Visit Start Time 09:23 Visit Stop Time 09:50 Total Visit Minutes 27 Number of SHIPPING AND RECEIVING MATERIAL HANDLER Visits 0 Physical Therapy Visit Comments Patient Comments pt agreeable to do PT Therapy Pain Assessment Pain When Pain Assessed At Rest Pain Present Pain Present Pain Reported Location Left Hip Intensity 2 Scale Used increases to 6/10 with movement Description With Movement Pain Management Techniques Apply Cold Re-positioning Timing of Activity with Medications M4 PT-IP Mobility and Gait Start: 06/05/18 17:12 Freq: NEEDED Status: Active Protocol: Document 06/06/18 09:23 AB (Rec: 06/06/18 11:27 AB [id number]) PT-Bed Mobility Assessment Supine to Sit Supine to Sit Standby Assistance Sit to Supine Sit to Supine Standby Assistance Scooting Scooting to Edge of Bed Standby Assistance PT-Transfer Assessment Sit to and From Stand Sit to and from Stand Standby Assistance Equipment Transfer Assistive Device Gait Belt Front Wheeled Walker Orthotic/Prosthetic Devices or Brace: No Gait Assessment Gait Gait Assistance Required: Standby Assistance Distance (Feet) 125 Able to Maintain Weight Bearing Status Yes During Gait Assistive Devices Assistive Device Gait Belt Front Wheeled Walker Orthotic/Prosthetic Devices or Brace: No Gait Deviations General Gait Pattern Decreased Stride Length Decreased Feet Clearance Factors Limiting Gait Function Factors Limiting Gait Function Decreased Activity Tolerance Decreased Strength Limited Range of Motion Pain Poor Balance M5 PT-IP Objective Assessments Start: 06/05/18 17:12 Freq: NEEDED Status: Active Protocol: Document 06/05/18 16:15 HH (Rec: 06/05/18 17:37 HH [id number]) Orientation Orientation/Cognition Level of Alertness Alert Orientation Name Age Birthday Month Date Year Day of Week Place Situation Language Function Ability No Deficits Noted Safety Awareness Understands Safety Issues Memory Description No Deficits Noted Gross Range of Motion Upper Extremity ROM Assessment Within Functional Limits Lower Extremity ROM Assessment Left Impaired Strength Upper Extremity Strength Assessment Within Functional Limits Lower Extremity Strength Assessment Left Impaired Comments Strength Comments 3+/5 for LLE grossly Coordination Assessment Gross Coordination Gross Coordination WNL Sensation Assessment Sensation Gross Sensation WNL M6 PT-IP Treatment Start: 06/05/18 17:12 Freq: NEEDED Status: Active Protocol: Document 06/06/18 09:23 AB (Rec: 06/06/18 11:27 AB [id number]) Physical Therapy Treatment Education Education Provided Precautions Weight Bearing Status Post-Op Packet Safety Other Treatments Other Treatment Performed reviewed L hip precautions with pt and pt initially required cues to recall but able to remember after repetitions. M7 PT-IP Assessment and Plan Start: 06/05/18 17:12 Freq: NEEDED Status: Active Protocol: Document 06/06/18 09:23 AB (Rec: 06/06/18 11:27 AB [id number]) PT Summary Assessment and Plan Potential Rehabilitation Potential Good Summary Impairments Pain ROM Strength Balance Coordination Sensation Bed Mobility Transfers Gait Activity Tolerance Progress Towards Goals Progressing Toward Goals Assessment Summary pt doing well with mobility and plans to go home with spouse to assist. pt is set up for outpt PT. Goals Bed Mobility Goal Independent Transfer Goal Independent Gait Goal Independent Gait Distance 150 Other Goals Able to recal ant hip precautions Days to Meet Goals 3 Frequency of Treatment Frequency Of Treatment Twice a Day Treatment Plan Physical Therapy Treatment Plan Bed Mobility Training Transfer Training Gait Training Therapeutic Exercise Balance Retraining Post Op Education Discharge Planning Hot or Cold Pack Other Recommendations and Next Treatment reassess his understanding of Focus ant hip precautions gait training as [place], step through training transfer training as [place] Recommendations To Nursing Amount of Assist Needed Standby Assistance 1 Person Assist Discharge Recommendations PT Discharge Recommendations Home Outpatient PT
[2018-06-06 10:59] VITALS: BP 115/77; PULSE 85; RESP 16; TEMP 36.6; O2SAT 95
--- NOTE | 2018-06-06 11:58 | CM.DANOTE ---
Discharge Planning/Care Management Advanced directive, confirm from FAMILY Start: 06/05/18 14:12 Freq: Q24H Status: Active Protocol: Document 06/05/18 16:44 KMD (Rec: 06/05/18 16:45 KMD [id number]) Advance Directive, confirm on record Time 16:45 Person contacted Copy received No CM Discharge Assessment Start: 06/06/18 11:55 Freq: Status: Active Protocol: Document 06/06/18 11:55 (Rec: 06/06/18 11:58 [id number]) Discharge Planning Assessment Assigned Roll Hand PRAVEEN Armas Advance Directives? Yes Advance Directives on File No History Provided By Patient Medical Record Has Patient been admitted in last 30 No days? Prior Living Arrangements House Household Members spouse Type of transporation used prior to Drives own vehicle admit Independent with ADL's Yes Is patient alert and oriented? Yes Caregiver for Another No Patient/Family Preference OP PT Therapy Barriers to Discharge No Discharge Plan Home Community Services Physical Therapy Transportation Arrangement Spouse to provide. Referrals Initiated None needed Additional Comment Payer is Medicare/[facility] PCP is Dr. Valdovinos. Per LITTLE Fulton patient to discharge home today with OP PT pending PT eval. Met with patient: patient agreeable to discharge and has no concerns or needs at this time. Patient's spouse is on her way to picker / packer patient and and patient has OP PT set up at PT in [facility] to begin on Tuesday. Whiteboard Updated in Patient Room with Yes name and ext. # of Roll Hand Please Provide Date Initial DC 06/06/18 Assessment Was Performed Pre-Anesthesia Assessment Start: 05/22/18 09:42 Freq: Status: Complete Protocol: Document 05/22/18 09:42 BREONNA (Rec: 05/22/18 10:38 Anne Marie [id number]) Pre-Anesthesia Assessment Patient Information Reviewed Via Chart Review Phone Assessment Assessment Completed With Patient Spouse Primary Care Provider Bean Valdovinos Seen Specialist in Last 12 Months Yes Specialist Seen Staff Technologist Orthopedist Safety Officer Other Comment Pain specialist for neck pain Primary Language Kazakh Drug Abuse Program Coordinator Required No Height 182.88 cm Weight 79.379 kg Body Mass Index (BMI) 23.7 Hearing Ability Hard of Hearing Visual Impairment Partially Limited Visual Assist Glasses Dentition Type Teeth, Natural Present Comment reading glasses; hearing aids didn't help Hx Anesthesia Reactions No alcohol intake current Smoking Status Former smoker Pain Present Pain Reported Musculoskeletal Symptoms Abnormal Gait Back Pain Difficulty Walking Joint Pain Limited Range of Motion Muscle Spasms Neck Pain History of Falling (Recent or History of Yes ) Patient is completely paralyzed or No completely immobile Ambulatory Aid None/bed rest/nurse assist Gait/Transferring Impaired Mental Status Oriented to own ability Comment Impaired balance Is patient on oxygen? No Does patient have MADISON/SOB No Hx Sleep Apnea No Will Bring CPAP/BIPAP DOS No Suspected Sleep Apnea No Currently Taking a Beta Benjamín No Can You Climb a Flight of Stairs Without No SOB Hx Chest Pain No Hx SOB No Hx Syncope or Dizziness No Anti-Coagulant Therapy Yes: Aspirin Has a Crystal Inspector No Cardiac Testing Yes Hx Pacemaker/ICD No Pacemaker Rep Required? No Cardiac Clearance Received Not Applicable Diet Type At Home Regular dysphagia No Genitourinary Symptoms Hematuria Bladder Pattern Hesitancy Nocturia Urinary Catheter Present No Hx Urinary Self Catheterization No Diabetes No Hx Drug Resistant Organism No Presence of External or Internal Medical Yes: Mesh Devices Have you traveled outside the [facility] in the last 30 days? Marital Status Lives With spouse Prior Living Arrangements House Number of Floors (Floors) One Floor Number of Stairs To Enter/Railing? no stairs into house Support System Child/Children Spouse Does the Patient Have Assistance After Yes Surgery Patient Discharge Plan Description Home Health Feels Safe in Current Environment Yes Been Physically Hurt or Threatened By a No Person in Current Environment Do you have thoughts of harming yourself None or others? Are you currently considering suicide? No Do you have a plan to hurt yourself or No Plan others? Do You Have Any Spiritual Beliefs That No May Affect Your HC Choices? Do You Have Any Cultural Practices That No May Affect Your HC Choices? Spiritual Referral None Who Can We Speak to About Patient's Care Friends & Family Identifying Code for Release of Patient Declined Information Health Care Proxy/Next of Kin - Corinne Hagan Health Care Proxy Emergency Contact Name - Corinne Hagan Emergency Contact Advance Directives? No Advance Directives on File No Requested Patient Bring Advanced Yes Directives DOS Power of Supervisor Beehive Kiln Yes Power of Supervisor [place]ive [employer]n Name - Corinne Hagan Power of Supervisor [place] PAC Instructions Assistance for 24 hours post- op Do not shave/clip surgical site Durable medical equipment Medications to take/avoid Nasal antibiotic No ETOH/petroleum product on skin DOS NPO Ortho class Post-op transportation Pre-op antibiotic Pre-surgical wash Sensory aids Sturdy shoes/comfortable clothes Do not bring valuables and remove jewelry Comment Plans at least one night stay PAC Comment Check-in 0610
--- NOTE | 2018-06-06 15:50 | PC.NURSE ---
Day Shift- Pt's pain management plan discussed this AM. Prn Oxycodone 5mg given at 0735 and 1205. The 0735 dose was not able to be scanned due to Oxycodone order as a solution. Cassandra Fulton PAC in room and stated would change. Medication given per verbal. New order rec'd for Oxycodone to be pill form which was given. Pain to left hip 2/10 resting and OOB movement from lying to sitting to standing is 6-7/10. Left hip aquacel dressing CDI, ice pack on/off throughout shift. PPP, no edema noted. Pt OOB with SBA using walker with some prompting. Tolerating meals, denies nausea. States is ready for discharge. Pt's present in room to drive pt home. Reviewed discharge summary packet including but not exclusive to S/S of infection, dressing care, pain management, preventing constipation, follow up appointment, mobility, when to call physician. All questions answered. Pt left unit via wheelchair with all belongings at 1235 in no distress.
== END 2018-06-06 12:35 | disposition home or self-care (01) | DRG 470 ==
PROVIDERS: Admitting Provider Orthopaedic Surgery; PCP Family Medicine; Visit Provider Orthopaedic Surgery
PROC: 0SRB02Z Replacement of Left Hip Joint with Metal on Polyethylene Synthetic Substitute, Open Approach (ICD-10-PCS; CPT 27130; principal; 2018-06-05 07:45)
DX: M16.12 Unilateral primary osteoarthritis, left hip (principal)
CPT/HCPCS: 36415; 72170; 73502; 76000; 85014; 85018; 94660; 94762; 94770; 97116; 97161; 97530; C1776; C9290; J0690; J1100; J1170; J2060; J2405; J2704; J3010; J3370

== ENCOUNTER → 2019-06-18 12:43 | Outpatient (CLI) | payer MEDICARE, SELFPAY ==
[2018-06-05 13:53] VITALS: BMI 23.7
--- NOTE | 2019-06-18 12:44 | DI.US.S_ITS ---
PROCEDURE: US THYROID INDICATIONS: LUMP TECHNIQUE: Real-time scanning was performed of the thyroid gland, with image documentation. COMPARISON: None. FINDINGS: Right: Thyroid lobe measures 5.1 x 2 x 1.3 cm, and is homogeneous in echotexture. Left: Thyroid lobe measures 4.5 x 1.9 x 1.5 cm, and is homogenous in echotexture. Isthmus: 3 mm thick. Nodule number: 1 Location: Left superior. Size: 1.8 x 0.8 x 1.3 cm. Composition: Solid Echogenicity: Hypoechoic Shape: wider than tall. Margins: Smooth Echogenic foci: None Total points: 4 ACR TI-RADS category: TR 4, moderately suspicious. Nodule number: 2 Location: Left inferior Size: 1 x 0.7 x 1 cm. Composition: Solid Echogenicity: Hypoechoic Shape: wider than tall. Margins: Smooth Echogenic foci: None Total points: 4 ACR TI-RADS category: TR 4, moderately suspicious. Nodule number: 3 Location: Right inferior Size: 1.1 x 0.8 x 0.9 cm. Composition: Solid Echogenicity: Hypoechoic Shape: wider than tall. Margins: Smooth Echogenic foci: None Total points: 4 ACR TI-RADS category: TR 4, moderately suspicious. Nodule number: 4 Location: Right mid Size: 1.3 x 0.6 x 0.6 cm. Composition: Solid Echogenicity: Hypoechoic Shape: wider than tall. Margins: Smooth Echogenic foci: None Total points: 4 ACR TI-RADS category: TR 4, moderately suspicious. IMPRESSION: 1. Thyroid nodule #1, TR4 greater than 1.5 cm. FNA is recommended. 2. Thyroid nodules #2, 3, 4; TR4 less than than 1.5 cm. followup ultrasound in one year is recommended. ACR TI-RADS definitions and recommendations: TI-RADS 1 (benign): 0 points. FNA not needed. TI-RADS 2 (not suspicious): 2 points. FNA not needed. TI-RADS 3 (mildly suspicious): 3 points. * FNA if 2.5 cm or larger, follow up if 1.5 cm or larger (at 1, 3, and 5 years). TI-RADS 4 (moderately suspicious): 4-6 points. * FNA if 1.5 cm or larger, follow up if 1 cm or larger (at 1, 2, 3, and 5 years). TI-RADS 5 (highly suspicious): 7 points or more. * FNA if 1 cm or larger, follow up if 0.5 cm or larger (every year for 5 years). Dictated by: Evens Brush M.D. on 06/18/2019 at 14:45 Approved by: Evens Brush M.D. on 06/18/2019 at 14:53
== END ==
PROVIDERS: PCP Family Medicine; Referring Provider Family Medicine; Visit Provider Family Medicine
DX: E04.2 Nontoxic multinodular goiter (principal)
CPT/HCPCS: 76536

== ENCOUNTER → 2019-12-05 13:44 | Outpatient (CLI) | payer MEDICARE, SELFPAY ==
[2018-06-05 13:53] VITALS: BMI 23.7
--- NOTE | 2019-12-05 13:45 | DI.US.S_ITS ---
PROCEDURE: US THYROID INDICATIONS: THYROID NODULE TECHNIQUE: Real-time scanning was performed of the thyroid gland, with image documentation. COMPARISON: [facility], [place], US THYROID, 06/18/2019, 13:03. FINDINGS: Right: Thyroid lobe measures 5.4 x 2.2 x 1.3 cm, and is homogeneous in echotexture. Left: Thyroid lobe measures 5.0 x 2.0 x 1.4 cm, and is homogenous in echotexture. Isthmus: 4.0 mm thick. Nodule number: 1 Location: Left superior Size: Unchanged 1.8 x 0.8 x 1.4 cm. Composition: Solid Echogenicity: Hypoechoic Shape: wider than tall. Margins: Smooth Echogenic foci: None Total points: 4 ACR TI-RADS category: Moderately suspicious Nodule number: 2 Location: Left inferior Size: Unchanged at 1.1 x 0.7 x 1.0 cm. Composition: Solid Echogenicity: Hypoechoic Shape: wider than tall. Margins: Smooth Echogenic foci: None Total points: 4 ACR TI-RADS category: Moderately suspicious Nodule number: 3 Location: Right inferior Size: Unchanged at 1.1 x 0.8 x 0.9 cm. Composition: Solid Echogenicity: Hypoechoic Shape: wider than tall. Margins: Smooth Echogenic foci: None Total points: 4 ACR TI-RADS category: Moderately suspicious Nodule number: 4 Location: Right mid Size: Unchanged 1.5 x 0.6 x 0.9 cm. Composition: Solid Echogenicity: Hypoechoic Shape: wider than tall. Margins: Smooth Echogenic foci: None Total points: 4 ACR TI-RADS category: Mildly suspicious IMPRESSION: Stable appearance of bilateral thyroid nodules. Recommend continued followup ultrasound as detailed below. ACR TI-RADS definitions and recommendations: TI-RADS 1 (benign): 0 points. FNA not needed. TI-RADS 2 (not suspicious): 2 points. FNA not needed. TI-RADS 3 (mildly suspicious): 3 points. * FNA if 2.5 cm or larger, follow up if 1.5 cm or larger (at 1, 3, and 5 years). TI-RADS 4 (moderately suspicious): 4-6 points. * FNA if 1.5 cm or larger, follow up if 1 cm or larger (at 1, 2, 3, and 5 years). TI-RADS 5 (highly suspicious): 7 points or more. * FNA if 1 cm or larger, follow up if 0.5 cm or larger (every year for 5 years). Dictated by: Saul FABIAN Interpreted: Manish Pierre MD on 12/05/2019 at 15:04 Approved by: Manish Pierre M.D. on 12/06/2019 at 12:07
== END ==
PROVIDERS: PCP Family Medicine; Referring Provider Family Medicine; Visit Provider Family Medicine
DX: E04.2 Nontoxic multinodular goiter (principal)
CPT/HCPCS: 76536

== ENCOUNTER → 2020-11-26 10:27 | Outpatient (CLI) | payer MEDICARE, SELFPAY ==
[2018-06-05 13:53] VITALS: BMI 23.7
--- NOTE | 2020-11-26 10:28 | DI.US.S_ITS ---
PROCEDURE: US THYROID INDICATIONS: multiple thyroid nodules, yearly f/u exam TECHNIQUE: Real-time scanning was performed of the thyroid gland, with image documentation. COMPARISON: [facility], [place], US THYROID, 06/18/2019, 13:03. [facility], [place], US THYROID, 12/05/2019, 14:31. FINDINGS: Right: Thyroid lobe measures 4.2 x 1.3 x 1.4 cm, and is homogeneous in echotexture. Left: Thyroid lobe measures 4.0 x 1.3 x 1.6 cm, and is homogenous in echotexture. Isthmus: 4 mm thick. Nodule number: 1 Location: Left superior Size: 1.8 x 0.8 x 1.4 cm compared to 1.8 x 0.8 x 1.4 cm. Composition: Solid Echogenicity: Hypoechoic Shape: wider than tall. Margins: Smooth Echogenic foci: None Total points: 4 ACR TI-RADS category: 4 Nodule number: 2 Location: Left inferior Size: 1.0 x 0.8 x 0.9 cm compared to 1.1 x 0.7 x 1.0 cm. Composition: Solid Echogenicity: Hypoechoic Shape: wider than tall. Margins: Smooth Echogenic foci: None Total points: 4 ACR TI-RADS category: 4 Nodule number: 3 Location: Right mid Size: 1.4 x 0.9 x 0.6 cm compared to 1.5 x 0.6 x 0.9 cm. Composition: Solid Echogenicity: Hypoechoic Shape: wider than tall. Margins: Smooth Echogenic foci: None Total points: 4 ACR TI-RADS category: 4 Nodule number: 4 Location: Right inferior Size: 0.8 x 0.8 x 0.6 cm compared to 1.1 x 0.8 x 0.9 cm. Composition: Spongiform Echogenicity: Hypoechoic Shape: wider than tall. Margins: Smooth Echogenic foci: None Total points: 4 ACR TI-RADS category: 4 IMPRESSION: 1. Stable bilateral thyroid nodules, all considered category 4. Secondary to size, follow-up at 1, 2, 3 and 5 years from initial visualization is recommended. ACR TI-RADS definitions and recommendations: TI-RADS 1 (benign): 0 points. FNA not needed. TI-RADS 2 (not suspicious): 2 points. FNA not needed. TI-RADS 3 (mildly suspicious): 3 points. * FNA if 2.5 cm or larger, follow up if 1.5 cm or larger (at 1, 3, and 5 years). TI-RADS 4 (moderately suspicious): 4-6 points. * FNA if 1.5 cm or larger, follow up if 1 cm or larger (at 1, 2, 3, and 5 years). TI-RADS 5 (highly suspicious): 7 points or more. * FNA if 1 cm or larger, follow up if 0.5 cm or larger (every year for 5 years). Dictated by: Sangeetha Delaney M.D. on 11/26/2020 at 13:25 Approved by: Sangeetha Delaney M.D. on 11/26/2020 at 13:36
== END ==
PROVIDERS: PCP Family Medicine; Referring Provider Family Medicine; Visit Provider Family Medicine
DX: E04.2 Nontoxic multinodular goiter (principal)
CPT/HCPCS: 76536

== ENCOUNTER → 2020-12-10 07:17 | Outpatient (CLI) | payer MEDICARE, SELFPAY ==
[2018-06-05 13:53] VITALS: BMI 23.7
[2020-12-10 08:12] LABS: Add Manual Diff / Slide Review NO; Basophils Absolute Auto 100 /uL (0-100); Basophils Percent Auto 1.4 % (0-2); Eosinophils Absolute Auto 300 /uL (0-450); Eosinophils Percent Auto 5.8 % (2-4); Hematocrit 42.3 % (41-53); Hemoglobin 14.2 g/dL (13.5-17.5); Lymphocytes Absolute Auto 1100 /uL (1100-4500); Lymphocytes Percent Auto 21.6 % (25-40); Mean Corpuscular HGB Conc 33.6 % (30-36); Mean Corpuscular Hemoglobin 30.6 PG (26-34); Mean Corpuscular Volume 91.1 fL (80-100); Monocytes Absolute Auto 600 /uL (0-900); Monocytes Percent Auto 12.6 % (3-14); Neutrophils Absolute Auto 2900 /uL (1500-7000); Neutrophils Percent Auto 58.6 % (50-75); Platelet Count 260 X10^3/uL (150-400); Red Blood Cell Count 4.65 X10^6/uL (4.5-5.9); Red Cell Distribution Width 14.4 % (11.6-14.8); White Blood Cell Count 4.9 X10^3/uL (4.5-11.0)
[2020-12-10 08:46] LABS: Alanine Aminotransferase 24 IU/L (<50); Albumin 3.9 g/dL (3.5-5.0); Albumin Globulin Ratio 1.3 (1.0-2.8); Alkaline Phosphatase 47 U/L (38-126); Aspartate Aminotransferase 30 IU/L (17-59); BUN Creatinine Ratio 23.1 (6-22); Bilirubin Total 0.5 mg/dL (0.2-1.3); Blood Urea Nitrogen 21 mg/dL (9-20); Calcium 9.3 mg/dL (8.4-10.2); Carbon Dioxide 29 mmol/L (22-32); Chloride 106 mmol/L (98-107); Cholesterol 145 mg/dL (140-199); Estimated Glomerular Filt Rate > 60.0 mL/min (>60); Glucose 111 mg/dL (80-110); HDL Cholesterol 67 mg/dL (40-60); HEMOLYSIS < 15 (0-50); LDL Cholesterol Calculated 67 mg/dL (<100); Potassium 4.7 mmol/L (3.4-5.1); Sodium 140 mmol/L (137-145); Total Protein 6.9 g/dL (6.3-8.2); Triglycerides 56 mg/dL (35-150)
[2020-12-10 09:21] LABS: TSH w/ Reflex to FT4 0.41 uIU/mL (0.47-4.68)
[2020-12-10 17:12] LABS: Free T4, Direct Thyroxine 1.07 ng/dL (0.78-2.19)
== END ==
PROVIDERS: PCP Family Medicine; Referring Provider Family Medicine; Visit Provider Family Medicine
DX: I10 Essential (primary) hypertension (principal); M51.36 Other intervertebral disc degeneration, lumbar region; N40.0 Benign prostatic hyperplasia without lower urinary tract symptoms
CPT/HCPCS: 36415; 80053; 80061; 84439; 84443; 85025

== ENCOUNTER → 2021-08-19 13:05 | Outpatient (CLI) | payer MEDICARE, SELFPAY ==
[2018-06-05 13:53] VITALS: BMI 23.7
--- NOTE | 2021-08-19 13:08 | DI.RAD.S_ITS ---
PROCEDURE: FL BARIUM SWALLOW W SPEECH INDICATIONS: difficulty with swollen COMPARISON: None. TECHNIQUE: Examination was conducted in conjunction with speech pathology per standard protocol. In the lateral projection, filming was performed of the patient swallowing. AP projection filming may also be performed with patient swallowing. COMPARISON: FINDINGS: Function: The oral preparatory phase appears normal, with proper containment. The subsequent oral propulsive phase, pharyngeal phase, and esophageal phase of swallowing also appear normal with all proffered substances. Multiple episodes of mild laryngotracheal penetration without minh aspiration. No pathologic vallecular pooling. There was delayed transit of ingested oral contrast from the mid to distal esophagus into the stomach with occasional episodes of minimal retrograde propulsion secondary to a few episodes of tertiary contractions. Morphology: No cricopharyngeal bar is identified. No cervical esophageal webs. No Zenker's diverticulum. No definite strictures. IMPRESSION: A few episodes of mild laryngotracheal penetration without minh aspiration. Episodes of tertiary contractions of the esophagus resulting in delayed transit and a few episodes of retrograde transit of ingested oral contrast. Otherwise, unremarkable barium swallow study. Please see separate report by the speech pathologist for further details. Dictated by: Iban Schroeder M.D. on 08/19/2021 at 17:05 Approved by: Iban Schroeder M.D. on 08/19/2021 at 17:09
--- NOTE | 2021-08-19 14:30 | ST.SWALLOW ---
Visit Care Team Role Provider Type Bean Valdovinos MD Attending Provider Physician Primary Care Provider Referring Provider Specialty: Family Practice Address: [address] [place] [address], [id number] Email: [email or web address] Modified Barium Swallow Study MAINTENANCE AND ENGINEERING MANAGER Modified Barium Swallow Study Start: 08/19/21 18:12 Freq: Status: Active Protocol: Document 08/19/21 18:12 ROSALIA (Rec: 08/19/21 18:13 ROSALIA [id number]) Modified Barium Swallow Study Total Time Visit Start Time 13:30 Visit Stop Time 14:15 Total Visit Minutes [address] Bean Valdovinos Reason for Referral Dysphagia Setting Setting Outpatient Care Patient Information Identification Type Name,ID Card Patient History The pt is an 81-yr-old male with hx of bilateral thyroid nodules, last assessed via ultrasound 11/26/20 and found to be stable, all considered category 4. He presents today with complaints of changes in swallow over the past 2 months. Pt denied sticking sensation or difficulty swallowing but described feeling a lump in his throat and having occ coughing with and without oral intake. The pt is a former smoker. He questioned whether thyroid nodules could contribute to dysphagia symptoms. Subjective Observations The pt arrived on time and provided case history supplemental to medical records. He was seated in exam chair, and procedure purpose and process was explained. He was agreeable to participation. Patient Positioning Position View Lat-A/P Imaging Lateral View Textures Administered Trials Presented Thin Liquid via Spoon,Thin Liquid via Cup,[place] Liquid via Spoon,[place] Liquid via Cup,Honey Liquid via Spoon, Dysphagia Blenderized Textures ,Regular Textures Oral Phase Source: MBSIMP (TM) (C) Bolus Specific Scoring Grid Lip Closure No Impairment (WNL) Tongue Control During Bolus Hold No Impairment (WNL) Bolus Prep/Mastication No Impairment (WNL) Bolus Transport/Lingual Motion Mild Impairment A/P Lingual Propulsion Delay No Oral Residue Minimal Impairment Residue Clearing WFL Nasal Regurgitation No Additional Oral Phase Observations Oral Peripheral Exam: WNL. Pt is missing a few back molars. All other dentition is present, natural, and in good condition. Posterior escape of bolus to the vallecula was observed with all trials, indicating reduced back of tongue strength. Pharyngeal Phase Source: MBSIMP (TM) (C) Bolus Specific Scoring Grid Delayed Initiation of Pharyngeal Swallow Yes: Occ bolus escape to vallecula prior to swallow onset Soft Palate Elevation No Impairment (WNL) Tongue Base Strength/Range of Motion Mild Impairment Residue Along the Tongue Base Yes Clearance of Residue Along Tongue Base WFL Laryngeal Elevation No Impairment (WNL) Anterior Hyoid Movement Mild Impairment Epiglottic Range of Motion No Impairment (WNL) Vallecular Residue Yes Clearance of Vallecular Residue Mild Impairment Laryngeal Vestibular Closure WFL Pharyngeal Stripping Wave Moderate Impairment Pharyngeal Contraction No Impairment (WNL) Posterior Pharyngeal Wall Residue Yes: Trace Clearance of Posterior Pharyngeal Wall WFL Residue Upper Esophageal Sphincter Opening No Impairment (WNL) Residue in the Pyriform Sinuses Yes: Trace to mild Clearance of Residue in the Pyriform WFL Sinuses Esophageal Clearance Upright Position Mild Impairment Pharyngoesophageal Backflow Observed No Additional Pharyngeal Phase Observations Flash mild penetration to VFs with and without laryngeal residue (PAS 4 and PAS 5, respectively) was observed with single and consecutive cup sips of thin liquid, silent in nature. No aspiration was observed. Pt was able to clear laryngeal residue with strong cough upon MAINTENANCE AND ENGINEERING MANAGER instructions. Pt did not indicate independent sensation of residue and need to cough, which increases his risk of aspiration. Chin tuck was not effective in preventing penetration. Supraglottic swallow was effective. No other airway intrusion was observed with all other trials. Hyolaryngeal elevation was WNL, but anterior displacement was reduced, likely contributing to incomplete airway closure. Swallow initiation was consistently delayed until bolus was at the vallecula, indicating both reduced back of tongue strength and reduced swallow trigger sensation. Mild pharyngeal residue was noted at vallecula, along aryepiglottic folds, and in pyriform sinuses, greater with liquids than solids. All mostly cleared with subsequent swallows. Reduced base of tongue strength and pharyngeal stripping wave were noted and likely contribute to pharyngeal residue. A/P View Textures Administered Trials Presented [place] Liquid via Cup, Dysphagia Blenderized Textures ,Barium Tablet A/P View Observations Pharyngeal Contraction No Impairment (WNL) Esophageal Function Slowed Clearing,Reverse Peristalsis Esophageal Clearance Upright Position Mild Impairment Esophageal Observations Esophageal Function Residue of previous trials was present at medial to distal esophagus upon initial A/P view. This cleared with swallows of water. Retrograde movement between distal to medial esophagus was observed with all A/P trials. Mild slowing of barium paste through LES was also observed. These conditions may warrant GI consultation. Question if referred sensation from esophagus to pharynx may contribute to pt's sensation of a lump in the throat or if GERD/LPR may be present, also possibly contributing to the lump sensation. If GERD is diagnosed by GI, the pt may benefit from ENT evaluation for LPR. A 13mm barium tablet passed without hesitation through esophagus and LES. Clinical Impressions Dysphagia Type Mild Oropharyngeal Dysphagia Findings The pt presents with mild oropharyngeal dysphagia secondary to reduced strength of musculature, specifically back and base of tongue, pharyngeal contractors, and superior laryngeal muscles. This results in delayed swallow trigger, incomplete airway protection, particularly with thin liquids, and mild pharyngeal residue. Flash silent penetration of thin liquid was noted in single and consecutive cup sips without aspiration. When instructed, the pt demonstrated strong cough that effectively cleared laryngeal residue, but he did not initiate this independently. Use of supraglottic swallow maneuver assisted in protecting the airway; chin tuck was not beneficial. Both laryngeal and pharyngeal residue increase the pt's risk of aspiration. Dysphagia therapy is recommended to improve oral and pharyngeal swallow function and swallow safety. Esophageal observations included slowed clearing and retrograde movements. GI consultation may be warranted. Rehabilitation Potential Good Patient Appropriate for Therapy Yes Recommendations Diet Liquids Order Thin Diet Order Regular Medication Recommendation As Tolerated Aspiration Precautions Recommended Precautions Upright at 90 Degrees,Small Bites/Sips,Double Swallow, Supraglottic Swallow Treatment Plan Therapy Recommendations Outpatient Speech Therapy Recommended Referrals GI Consult Compensatory Strategies Recommendations Sitting Upright (90 deg),Chin Tuck,Double Swallow, Supraglottic Swallow Short Term Goals Dysphagia therapy to include pt education and training in safe swallow stragies and exercises to improve function and safety. Longterm Goals Swallow function and safety WNL.
== END ==
PROVIDERS: PCP Family Medicine; Referring Provider Family Medicine; Visit Provider Family Medicine
DX: R13.10 Dysphagia, unspecified (principal)
CPT/HCPCS: 74230; 92611

== ENCOUNTER → 2021-11-23 10:29 | Outpatient (CLI) | payer MEDICARE, SELFPAY ==
[2018-06-05 13:53] VITALS: BMI 23.7
--- NOTE | 2021-11-23 10:31 | DI.US.S_ITS ---
PROCEDURE: US THYROID INDICATIONS: ONE YEAR FOLLOW UP NODULES TECHNIQUE: Real-time scanning was performed of the thyroid gland, with image documentation. COMPARISON: [facility], [place], US THYROID, 06/18/2019, 13:03. [facility], [place], US THYROID, 12/05/2019, 14:31. [facility], [place], US THYROID, 11/26/2020, 9:40. FINDINGS: Right: Thyroid lobe measures 5.2 x 1.8 x 2.8 cm, and is heterogeneous in echotexture. Left: Thyroid lobe measures 3.9 x 2.1 x 2.7 cm, and is kidney is in echotexture. Isthmus: 4.7 mm thick. Nodule number: 1 Location: Left upper Size: 1.5 x 1.6 x 0 point cm (previously 1.8 x 1.4 x 0.8 cm). Composition: Solid Echogenicity: Isoechoic Shape: wider than tall. Margins: Small size Echogenic foci: Non Total points: 3 ACR TI-RADS category: 3 Nodule number: 2 Location: Left inferior Size: 0.8 x 0.7 x 0.7 cm (previously 1.0 x 0.9 x 0.8 cm). Composition: Solid Echogenicity: Hypoechoic Shape: wider than tall. Margins: Small Echogenic foci: None Total points: 4 ACR TI-RADS category: 4 Nodule number: 3 Location: Right superior/mid Size: 0.6 x 0.6 x 0.3 cm; previously not measured. Composition: Cystic Echogenicity: Anechoic Shape: wider than tall. Margins: Small Echogenic foci: Non Total points: 0 ACR TI-RADS category: 1 Nodule number: 4 Location: Right mid Size: 0.6 x 0.6 x 0.4 cm; previously not measured. Composition: Cystic Echogenicity: Anechoic Shape: wider than tall. Margins: Small Echogenic foci: None Total points: 0 ACR TI-RADS category: 1 Nodule number: 5 Location: Right inferior Size: 0.7 x 0.6 x 0.6 cm; previously 0.8 x 0.8 x 0.6 cm. Composition: Cystic Echogenicity: Hypoechoic Shape: wider than tall. Margins: Small Echogenic foci: None Total points: 2 ACR TI-RADS category: 2 IMPRESSION: 1. No significant change in solid left thyroid nodules. Recommend continue sonographic survey glands per ACR guideline. 2. Cystic nodules in right thyroid are either benign or not suspicious. No additional follow-up are needed. ACR TI-RADS definitions and recommendations: TI-RADS 1 (benign): 0 points. FNA not needed. TI-RADS 2 (not suspicious): 2 points. FNA not needed. TI-RADS 3 (mildly suspicious): 3 points. * FNA if 2.5 cm or larger, follow up if 1.5 cm or larger (at 1, 3, and 5 years). TI-RADS 4 (moderately suspicious): 4-6 points. * FNA if 1.5 cm or larger, follow up if 1 cm or larger (at 1, 2, 3, and 5 years). TI-RADS 5 (highly suspicious): 7 points or more. * FNA if 1 cm or larger, follow up if 0.5 cm or larger (every year for 5 years). Dictated by: Asya Mullins M.D. on 11/23/2021 at 15:17 Approved by: Asya Mullins M.D. on 11/23/2021 at 15:26
== END ==
PROVIDERS: PCP Family Medicine; Referring Provider Family Medicine; Visit Provider Family Medicine
DX: E04.2 Nontoxic multinodular goiter (principal)
CPT/HCPCS: 76536

== ENCOUNTER → 2022-11-29 10:59 | Outpatient (CLI) | payer MEDICARE, SELFPAY ==
[2018-06-05 13:53] VITALS: BMI 23.7
--- NOTE | 2022-11-29 11:01 | DI.US.S_ITS ---
PROCEDURE: US THYROID INDICATIONS: THYROID NODULE TECHNIQUE: Real-time scanning was performed of the thyroid gland, with image documentation. COMPARISON: [facility], [place], US THYROID, 11/26/2020, 9:40. [facility], [place], US THYROID, 11/23/2021, 11:52. FINDINGS: Right: Thyroid lobe measures 2.6 x 1.7 x 1.5 cm compared to 5.2 x 1.8 x 2.8 cm, and is heterogeneous in echotexture. Left: Thyroid lobe measures 3.3 x 2.1 x 1.3 cm compared to 2.9 x 2.1 x 2.7 cm, and is heterogeneous in echotexture. Isthmus: 3 mm thick. Nodule number: 1 Location: Left mid Size: 1.7 x 0.8 x 1.3 cm compared to 1.6 x 0.9 x 1.5 cm. Composition: Solid Echogenicity: Hypoechoic Shape: wider than tall. Margins: Smooth Echogenic foci: None Total points: 4 ACR TI-RADS category: 4 Nodule number: 2 Location: Left inferior Size: 0.9 x 0.6 x 0.9 cm compared to 0.8 x 0.7 x 0.7 cm. Composition: Solid Echogenicity: Hypoechoic Shape: wider than tall. Margins: Smooth Echogenic foci: None Total points: 4 ACR TI-RADS category: 4 Nodule number: 3 Location: Right superior Size: 0.6 x 0.4 x 0.6 cm compared to 0.6 x 0.3 x 0.6 cm. Composition: Predominantly cystic Echogenicity: Anechoic Shape: wider than tall. Margins: Smooth Echogenic foci: None Total points: 1 ACR TI-RADS category: 1 Nodule number: 4 Location: Right mid Size: 0.6 x 0.4 x 0.6 cm compared to 0.4 x 0.4 x 0.6 cm. Composition: Cystic Echogenicity: Anechoic Shape: wider than tall. Margins: Smooth Echogenic foci: None Total points: 1 ACR TI-RADS category: 1 Nodule number: 5 Location: Right inferior Size: 0.6 x 0.5 x 0.7 cm compared to 0.8 x 0.6 x 0.8 cm. Composition: Cystic Echogenicity: Anechoic Shape: wider than tall. Margins: Smooth Echogenic foci: None Total points: 1 ACR TI-RADS category: 1 IMPRESSION: Lesions 1 through 5 are stable compared to prior exam. Recommend continued interval follow-up as below. ACR TI-RADS definitions and recommendations: TI-RADS 1 (benign): 0 points. FNA not needed. TI-RADS 2 (not suspicious): 2 points. FNA not needed. TI-RADS 3 (mildly suspicious): 3 points. * FNA if 2.5 cm or larger, follow up if 1.5 cm or larger (at 1, 3, and 5 years). TI-RADS 4 (moderately suspicious): 4-6 points. * FNA if 1.5 cm or larger, follow up if 1 cm or larger (at 1, 2, 3, and 5 years). TI-RADS 5 (highly suspicious): 7 points or more. * FNA if 1 cm or larger, follow up if 0.5 cm or larger (every year for 5 years). Dictated by: Sangeetha Delaney M.D. on 11/29/2022 at 16:34 Approved by: Sangeetha Delaney M.D. on 11/29/2022 at 16:38
== END ==
PROVIDERS: PCP Family Medicine; Referring Provider Family Medicine; Visit Provider Family Medicine
DX: E04.2 Nontoxic multinodular goiter (principal)
CPT/HCPCS: 76536

== ENCOUNTER 2024-12-18 13:24 | Outpatient (CLI) | payer MEDICARE, SELFPAY ==
[2024-08-03 14:21] VITALS: BMI 23.7
[2024-12-18] VITALS (9 sets, daily range): BP systolic 116–158; BP diastolic 63–78; PULSE 63–69; RESP 14–24; TEMP 37; O2SAT 94–100
[2024-12-18] MEDS: MIDAZOLAM 2 MG/2 ML VIAL IV (14:22)
[2024-12-18] MEDS: BUPIVACAINE 0.25% (PF) VIAL 2 ML INJ (14:27)
[2024-12-18] MEDS: DEXAMETHASONE 10 MG/ML VIAL 20 MG INJ (14:28)
[2024-12-18] MEDS: BETAMETHASONE 30 MG/5 ML MDV 12 MG INJ (14:29)
[2024-12-18] MEDS: BETAMETHASONE 30 MG/5 ML MDV 6 MG INJ (14:31)
[2024-12-18] MEDS: LIDOCAINE 1% 20 ML INJ (14:32)
--- NOTE | 2024-12-18 14:43 | PM.PROC.IR.1 ---
Date/Time/Diagnoses Date of procedure: 12/18/24 Time of procedure: 14:43 Pre-procedure diagnosis: 1. FORAMINAL STENOSIS WITH LE SYMPTOMS Procedure Notes Procedure: 1. FLUOROSCOPICALLY GUIDED CONTRAST CONTROLLED TRANSFORAMINAL EPIDURAL STEROID INJECTION - BILATERAL L4/5 TFESI Indications: Holly is referred by ALBARO aBrker for treatment of Foraminal Stenosis with bilateral LE Symptoms Physician: Salvador Edgar Total Fluoroscopy time (seconds): 12 Total sedation minutes: 19 Complications: none Procedure in detail & Post-procedure care: FINDINGS Foraminal Nerve Root Compression secondary to disc disease and facet hypertrophy DESCRIPTION OF PROCEDURE Following review of allergy and review of potential side effects and complications, including, but not necessarily limited to, infection, allergic reaction, local tissue breakdown, stroke, temporary or permanent nerve injury, paralysis, and possible , the patient indicated that the patient understood and agreed to proceed. An informed consent document was signed by the patient, witnessed by a nurse, and placed in the patient's chart. Additionally, other treatment options including medications, modalities, and physical therapy were reviewed with the patient. After review of previous anaesthesic history and IV conscious sedation the patient was deemed safe to proceed with today?s procedure with IV conscious sedation as ASA class II designation. Safety time-out was performed to confirm patient ID, procedure to be performed and site of procedure. IV sedation was accomplished with a combination of 2mg of Versed was administered by the RN after DO order, titrated to patient comfort during the course of the procedure while the patient remained responsive to all verbal commands In the prone position following sterile prep and drape of the lumbar region, the right L4/5 posterior neuroforamen was identified fluoroscopically. The skin was anesthetized via a 25-gauge 1.5-inch needle with 1% lidocaine solution. At this point, a 25-gauge 3.5-inch spinal needle was atraumatically introduced and advanced under fluoroscopic guidance through the posterior right L4/5 neuroforamen to approximately the anterior aspect of the canal. Depth was confirmed on lateral view. Following negative aspiration, injection of approximately 1.5cc of Isovue 200 under live fluoroscopy in the AP view confirmed excellent flow along the nerve root, into the epidural space without vascular or intrathecal uptake observed Radiological data, including multiple fluoroscopic views of the lumbosacral spine, reveal a spinal needle at the right L4/5 posterior neuroforamen. Subsequent views show flow of contrast material flowing superiorly and inferiorly along the nerve root confirming epidural flow. Subsequently, a test dose of 1.5cc of 1% lidocaine solution was administered and patient was observed for two minutes for signs or symptoms of complications, including abdominal pain, shortness of breath, bilateral upper or lower extremity weakness, nausea and vomiting, prior to steroid injection. At this point, a total of 2cc or 10mg of dexamethasone and 6mg betamethasone was injected without incident. Attention was then refocused to the left L4/5 level where the identical procedure was replicated. The procedure tolerated the procedure well without signs or symptoms of complications prior to transfer to the recovery area continued monitoring without incident. The patient was then transferred to the recovery area where they were observed for an appropriate time after the injection. The patient reported a VAS score of 7 prior to the procedure and a post-procedure VAS of 0. POST OP INSTRUCTIONS The patient was provided a Pain Log to continue to record their response to the target-specific procedure prior to follow-up visit with their referring physician. Additionally, specific post-injection care instructions and a contact number to our office were provided if concerns arise regarding possible complications associated with the procedure are suspected.
== END 2024-12-18 14:52 | disposition home or self-care (01) ==
PROVIDERS: PCP Nurse Practitioner; Referring Provider Physical Medicine & Rehabilitation; Visit Provider Physical Medicine & Rehabilitation
DX: M48.061 Spinal stenosis, lumbar region without neurogenic claudication (principal); M51.16 Intervertebral disc disorders with radiculopathy, lumbar region; M47.26 Other spondylosis with radiculopathy, lumbar region
CPT/HCPCS: 64483; 99152; J0702; J1100; J2250